=== PATIENT | female | born 1940 | race Caucasian/White ===

== ENCOUNTER 2018-03-18 10:32 | Day surgery (SDC) | payer MEDICARE ==
[2018-03-17 14:18] VITALS: BMI 18.3
[2018-03-18] MEDS ORDERED: Oxymetazoline HCl 0.05% ( 15 ML ) ONE ×2 (11:42→12:58)
[2018-03-18 12:52] LABS: Hemoglobin 14.4 g/dL (12.0-16.0)
[2018-03-18] MEDS ORDERED: Lidocaine 1% w/Epinephrine 1:100K 30 ML VIAL ONE (12:58)
[2018-03-18] MEDS ORDERED: Fentanyl 100 MCG/2 ML VIAL ONE ×3 (13:01→14:39)
[2018-03-18 13:16] LABS: Anion Gap 11 mmol/L (10-20); BUN (Urea Nitrogen) 20 mg/dL (9.8-20.1); Calc. Creatinine Clearance 53 mL/min (70-130); Calcium 9.9 mg/dL (7.8-10.44); Carbon Dioxide 30 mmol/L (23-31); Chloride 105 mmol/L (98-107); Estimated GFR-MDRD 80; Glucose 91 mg/dL (83-110); Potassium 4.4 mmol/L (3.5-5.1); Sodium 142 mmol/L (136-145)
[2018-03-18] MEDS ORDERED: hydrALAZINE 20 MG/ML VIAL ONE (14:04)
[2018-03-18] MEDS ORDERED: Lidocaine 1% PF 5 ML VIAL ONE (14:39)
[2018-03-18] MEDS ORDERED: Ondansetron HCl/PF 4 MG/2 ML Vial ONE (14:39)
[2018-03-18] MEDS ORDERED: Dexamethasone 20 MG/5 ML VIAL ONE (14:39)
[2018-03-18] MEDS ORDERED: PROPOFOL 200 MG/20 ML VIAL ONE (14:39)
--- NOTE | 2018-03-19 09:07 | OP ---
DATE OF PROCEDURE: 03/18/2018 PREOPERATIVE DIAGNOSES: 1. Recurrent acute sinusitis. 2. Bilateral inferior turbinate hypertrophy. 3. Nasal obstruction. POSTOPERATIVE DIAGNOSES: 1. Recurrent acute sinusitis. 2. Bilateral inferior turbinate hypertrophy. 3. Nasal obstruction. PROCEDURES: 1. Bilateral endoscopic sinus surgery, total ethmoidectomies. 2. Bilateral endoscopic sinus surgery, maxillary antrostomies. 3. Bilateral inferior turbinate submucosal resection. SURGEON: Ihsan Moore M.D. ESTIMATED BLOOD LOSS: 0 mL. COMPLICATIONS: None. ANESTHESIA: GETA. PROCEDURE: The patient was taken to the operating room and placed supine on the table. General endo tracheal anesthesia was obtained by the Anesthesia staff. Tube was secured in the left lower lip. T he patient was then placed in the beach chair position. Following this, the 0 degree endoscope was a dvanced in the nasal cavity and injection of 1% lidocaine 1:10,000 epinephrine was made into the infe rior turbinates, middle turbinates and lateral nasal wall bilaterally. Following this, the middle tu rbinates were gently medialized. It was noted that the middle turbinate had a paradoxical curvature, a Delano elevator was used to straighten the middle turbinates. Following this, the most lateral asp ect of the middle turbinates was resected using the 0 degree microdebrider. Following this, the unci vince process was identified and was anteriorly fractured using the ball ended probe. The uncinate wa s then removed using the straight microdebrider as well as the ball-ended probe and upbiting Blakesle y forceps. Following this, the natural maxillary sinus ostia was identified and was widened using th e curved microdebrider bilaterally. Following this, the ethmoidal bulla was identified and was punct ured on its medial and inferior aspect and was removed. Following this, the grand lamella was identi fied and was punctured in the posterior ethmoidal cells working from posterior to anterior, the ethmo idal cells were opened bilaterally. Following this, the inferior turbinates were punctured on their anterior and inferior quadrant with the submucosal microdebrider and submucosal resection was perform ed of the anterior and inferior portions of the inferior turbinates bilaterally. The patient tolerat ed the procedure well.
--- NOTE | 2018-03-19 09:07 | OP ---
DATE OF PROCEDURE: 03/18/2018 PREOPERATIVE DIAGNOSES: 1. Sinusitis. 2. Bilateral inferior turbinate hypertrophy. 3. Nasal obstruction. POSTOPERATIVE DIAGNOSES: 1. Sinusitis. 2. Bilateral inferior turbinate hypertrophy. 3. Nasal obstruction. PROCEDURES: 1. Bilateral endoscopic sinus surgery, total ethmoidectomies. 2. Bilateral endoscopic sinus surgery, maxillary antrostomies. 3. Bilateral inferior turbinate submucous resection. SURGEON: Ihsan Moore M.D. ESTIMATED BLOOD LOSS: 10 mL. COMPLICATIONS: None. ANESTHESIA: GETA. PROCEDURE: The patient was taken to the operating room and placed supine on the table. General endo tracheal anesthesia was obtained by the Anesthesia staff. Tube was secured in the left lower lip. T he patient was placed in the beach chair position. Afrin pledgets were placed in the nasal cavity. Following this patient was prepped and draped for standard nasal procedure. Following this, the 0 de gree endoscope was advanced in the nasal cavities. Afrin pledgets were removed, 1% lidocaine with 1: 100,000 epinephrine was injected into the inferior turbinates, middle turbinates and lateral nasal wa ll.
== END 2018-03-18 16:45 | disposition home or self-care (01) ==
LOC: SDC 10:32
PROVIDERS: ATTEND Otolaryngology Plastic Surgery within the Head & Neck
PROC: 09TV8ZZ Resection of Left Ethmoid Sinus, Via Natural or Artificial Opening Endoscopic (ICD-10-PCS; principal; 2018-03-18)
PROC: 09TU8ZZ Resection of Right Ethmoid Sinus, Via Natural or Artificial Opening Endoscopic (ICD-10-PCS; 2018-03-18)
PROC: 099R8ZZ Drainage of Left Maxillary Sinus, Via Natural or Artificial Opening Endoscopic (ICD-10-PCS; 2018-03-18)
PROC: 099Q8ZZ Drainage of Right Maxillary Sinus, Via Natural or Artificial Opening Endoscopic (ICD-10-PCS; 2018-03-18)
PROC: 09TL8ZZ Resection of Nasal Turbinate, Via Natural or Artificial Opening Endoscopic (ICD-10-PCS; 2018-03-18)
DX: J01.91 Acute recurrent sinusitis, unspecified (principal); J32.4 Chronic pansinusitis; J34.3 Hypertrophy of nasal turbinates; J34.89 Other specified disorders of nose and nasal sinuses; K12.0 Recurrent oral aphthae; Z87.891 Personal history of nicotine dependence; Z79.899 Other long term (current) drug therapy
CPT/HCPCS: 36415; 80048; 85014; 85018; 93005; 93010; 96374; J0360; J1100; J2001; J2405; J2704; J3010; J3490